=== PATIENT | male | born 1955 | race Caucasian/White ===

== ENCOUNTER 2018-12-11 09:57 | Emergency (ER) | payer OTHER ==
[~2018-12-11] VITALS: Ht 165.1 cm; Wt 74.8 kg
[~2018-12-11 09:57] MED LIST: B/P MED; HYDR-762 PO; LOVA10TA63
[2018-12-11 10:00] VITALS: Ht 165.1 cm; Wt 74.8 kg
[2018-12-11] MEDS ORDERED: ATEN50TA PO (10:41)
[2018-12-11] MEDS ORDERED: FELO10TA PO (10:41)
[2018-12-11] MEDS ORDERED: FURO40TA4 PO (10:41)
[2018-12-11] MEDS ORDERED: LOVA20TA PO (10:41)
[2018-12-11] MEDS ORDERED: LOSA50TA14 PO (10:42)
[2018-12-11] MEDS ORDERED: OMEP40CA6 PO (10:42)
[2018-12-11] MEDS ORDERED: ASPIRIN 325 MG TAB PO STA (10:59)
[2018-12-11] MEDS ORDERED: NITROGLYCERIN 2% 1 GM OINT PKT TD STA (10:59)
[2018-12-11] MEDS ORDERED: NITROGLYCERIN (SL) 0.4 MG TAB SL PRN (11:00)
--- NOTE | 2018-12-11 11:57 | ERD ---
ER Documentation Chief Complaint Chief Complaint 2 days ago numbness shoulder down left side,today tingling left side of fac HPI Patient is a 63-year-old male with hypertension who presents with numbness to the left arm. He also has left-sided chest pressure-like discomfort. The symptoms started 2 days ago. He now has left-sided facial tingling which goes down to the bottom of his foot. He said that 1 hour ago his numbness moved to the right side as well. He does have a primary doctor. ROS All systems reviewed and are negative except as per history of present illness. Medications Home Meds Reported Medications Omeprazole* (Omeprazole*) 40 Mg Capsule.dr, 40 MG PO DAILY, #30 CAP 12/11/18 Losartan Potassium* (Losartan Potassium*) 50 Mg Tablet, 50 MG PO DAILY, TAB 12/11/18 Lovastatin* (Lovastatin*) 20 Mg Tablet, 20 MG PO HS, TAB 12/11/18 Atenolol* (Atenolol*) 50 Mg Tablet, 50 MG PO DAILY, #30 TAB 12/11/18 Felodipine* (Felodipine*) 10 Mg Tab.sr.24h, 10 MG PO DAILY, TAB.SA 12/11/18 Furosemide* (Furosemide*) 40 Mg Tablet, 40 MG PO NEEDED, TAB 12/11/18 Discontinued Reported Medications [B/P Med] No Conflict Check 06/22/11 Hydrocodone Bit-Acetaminophen* ([place]*) 1 Tab Tablet, 1 TAB PO DAILY 06/22/11 Lovastatin* (Lovastatin*) 10 Mg Tablet 02/14/11 Allergies Allergies: Coded Allergies: ibuprofen (Verified Allergy, Mild, SWELLING, 12/11/18) SWELLING/ PMhx/Soc History of Surgery: Yes (HERNIA SURGERY) Anesthesia Reaction: No Hx Neurological Disorder: No Hx Respiratory Disorders: No Hx Cardiac Disorders: Yes (HYPERTENSION) Hx Psychiatric Problems: No Hx Miscellaneous Medical Probl: Yes (KIDNEY STONES) Hx Alcohol Use: No Hx Substance Use: No Hx Tobacco Use: Yes (4-5 cig daily) Smoking Status: Current every day smoker FmHx Family History: coronary disease Physical Exam Vitals Vital Signs Date Temp Pulse Resp B/P (MAP) Pulse Ox O2 O2 Flow FiO2 Time Delivery Rate 12/11/18 98.6 80 20 160/95 99 Room Air 12:34 (116) 12/11/18 64 16 147/98 98 Room Air 10:21 (114) 12/11/18 98.1 69 18 161/94 99 10:00 (116) Physical Exam Const: No acute distress Head: Atraumatic Eyes: Normal Conjunctiva ENT: Normal External Ears, Nose and Mouth. Neck: Full range of motion. No meningismus. Resp: Clear to auscultation bilaterally Cardio: Regular rate and rhythm, no murmurs Abd: Soft, non tender, non distended. Normal bowel sounds Skin: No petechiae or rashes Back: No midline or flank tenderness Ext: No cyanosis, or edema Neur: Awake and alert, cranial nerves II through XII are intact, strength is 5 out of 5 in all 4 extremities, no slurred speech, no pronator drift Psych: Normal Mood and Affect Result Diagram: 12/11/18 1010 12/11/18 1010 Results 24 hrs Laboratory Tests Test 12/11/18 10:10 12/11/18 11:21 White Blood Count 8.8 10^3/ul Red Blood Count 5.19 10^6/ul Hemoglobin 15.1 g/dl Hematocrit 45.6 % Mean Corpuscular Volume 87.9 fl Mean Corpuscular Hemoglobin 29.1 pg Mean Corpuscular Hemoglobin Concent 33.1 g/dl Red Cell Distribution Width 13.9 % Platelet Count 250 10^3/UL Mean Platelet Volume 9.6 fl Immature Granulocytes % 2.300 % Neutrophils % 61.5 % Lymphocytes % 24.5 % Monocytes % 8.4 % Eosinophils % 2.3 % Basophils % 1.0 % Nucleated Red Blood Cells % 0.0 /100WBC Immature Granulocytes # 0.200 10^3/ul Neutrophils # 5.4 10^3/ul Lymphocytes # 2.2 10^3/ul Monocytes # 0.7 10^3/ul Eosinophils # 0.2 10^3/ul Basophils # 0.1 10^3/ul Nucleated Red Blood Cells # 0.0 10^3/ul Prothrombin Time 11.5 Sec Prothrombin Time Ratio 0.9 INR International Normalized Ratio 0.83 Activated Partial Thromboplast Time 24.9 Sec Sodium Level 144 mmol/L Potassium Level 3.9 mmol/L Chloride Level 109 mmol/L Carbon Dioxide Level 25 mmol/L Anion Gap 10 Blood Urea Nitrogen 23 mg/dl Creatinine 0.81 mg/dl Est Glomerular Filtrat Rate mL/min > 60 mL/min Glucose Level 121 mg/dl Hemoglobin A1c 6.1 % Calcium Level 9.3 mg/dl Troponin I < 0.012 ng/ml Triglycerides Level 120 mg/dl Cholesterol Level 203 mg/dl LDL Cholesterol, Calculated 124 mg/dl HDL Cholesterol 55 mg/dl Cholesterol/HDL Ratio 3.6 RATIO Urine Color YELLOW Urine Clarity CLEAR Urine pH 7.0 Urine Specific [place] 1.013 Urine Ketones NEGATIVE mg/dL Urine Nitrite NEGATIVE mg/dL Urine Bilirubin NEGATIVE mg/dL Urine Urobilinogen NEGATIVE mg/dL Urine Leukocyte Esterase NEGATIVE [place]/ul Urine Hemoglobin NEGATIVE mg/dL Urine Glucose NEGATIVE mg/dL Urine Total Protein NEGATIVE mg/dl Urine Opiates Screen Negative Urine Barbiturates Negative Urine Amphetamines Screen Negative Urine Benzodiazepines Screen Negative Urine Cocaine Screen Negative Urine Cannabinoids Negative Current Medications Medications Dose Sig/Brandy Start Time Status Last (Trade) Ordered Route PRN Stop Time Admin Dose Reason Admin Aspirin 325 mg ONCE STAT 12/11/18 DC 12/11/18 (Aspirin) PO 10:59 12/11/18 11:15 11:00 1 inch ONCE STAT 12/11/18 DC 12/11/18 Nitroglycerin TD 10:59 12/11/18 11:15 11:00 (Nitroglyceri n 2% Oint) 1 tab Q5M UP TO 3 12/11/18 DC Nitroglycerin DOSES PRN 11:00 12/11/18 SL .CHEST 13:08 (Nitroglyceri PAIN n (Sl Tab) 0.4 Mg) Procedures/MDM CT brain negative per radiology. Chest x-ray negative per radiology. EKG read by me: Rate/Rhythm: Sinus bradycardia rate of 58 Intervals: Normal Impression: Sinus bradycardia without ischemia Smoking Cessation Therapy: Pt. was lectured for greater than 3 minutes on the health risks of continued smoking and the benefits of cessation. Patient is a 63-year-old male with hypertension who presents with chest pain and numbness. I wanted to admit him to the hospital for further work-up including MRI of the brain and serial troponins and possibly stress test. However the patient is adamant that he does not worsen in the hospital at this time. He wants to follow-up with his primary doctor and can do so within 24 to 48 hours. At this point I cannot rule out acute coronary syndrome or stroke. I doubt pn eumonia, pneumothorax, pulmonary embolism, or aortic dissection. Again the patient was offered and recommended admission but refused. Departure Diagnosis: Primary Impression: Numbness Condition: Fair Patient Instructions: Numbness, Paraesthesias Referrals: Your doctor Additional Instructions: Call your primary care doctor TOMORROW for an appointment during the next 1-2 days.See the doctor sooner or return here if your condition worsens before your appointment time. ZEINAB CHIU MD Dec 11, 2018 11:57
[2018-12-11 12:34] VITALS: BP 160/95; PULSE 80; RESP 20
== END 2018-12-11 13:08 | disposition home or self-care (01) ==
LOC: E/R 09:57
DX: R20.0 Anesthesia of skin (principal); I10 Essential (primary) hypertension; F17.210 Nicotine dependence, cigarettes, uncomplicated
CPT/HCPCS: 36415; 70450; 71045; 80048; 80061; 80307; 81003; 83036; 84484; 85025; 85610; 85730; 93005